=== PATIENT | male | born 1935 | race Caucasian/White ===

== ENCOUNTER 2017-01-20 05:13 | Emergency (ER) | payer OTHER ==
[~2017-01-20] VITALS: Ht 172.7 cm; Wt 86.4 kg
[~2017-01-20 05:13] MED LIST: ASPI325T PO; GLIM1TAB PO; GLUCTAB PO; LANTINJ SC; NIAC100T3 PO; NOVOLOGP2 SC; PRIN20TA2 PO; ROSU40 OR
[2017-01-20 05:23] VITALS: BP 162/71; PULSE 64; RESP 18; TEMP 98.1; O2SAT 97
[2017-01-20] MEDS ORDERED: METF500T PO (05:37)
[2017-01-20] MEDS ORDERED: LISI-515 PO (05:42)
--- NOTE | 2017-01-20 05:49 | PD ---
HPI Chief Complaint: Skin Problem Time Seen by Provider: 05:42 Travel History International Travel<30 days: No Contact w/Intl Traveler<30days: No Traveled to known affect area: No History of Present Illness HPI 41-year-old male presents to the emergency department for complaint of redness and swelling and pain to the right wrist. Patient has noted this discomfort over the past 2 days. Tetanus status is current. Patient states that a few days ago he was playing with a cat and may have sustained a scratch or a superficial puncture wound or bite. Patient is not sure. Patient states that there was a small area of bleeding. Patient denies any ascending erythema and has not experienced any axillary lymphadenopathy. No reported fever or chills. Patient is diabetic. Blood sugars have been adequately controlled. No recent change in medication. No fall or injury otherwise noted. Area of soft tissue swelling is confined to the wrist and spares the hands and digits as well as spares the forearm. PFSH Past Medical History Narrative Medical CAD hypertension dyslipidemia diabetes cardiac catheterization with stents 3 tobacco use prostate cancer; nursing notes reviewed Heart Rhythm Problems: Yes (TODAY, ELEVATED HEART RATE) Cancer: Yes (PROSTATE) Cardiac Catheterization: Yes Cardiovascular Problems: Yes (STENTS X3) High Cholesterol: Yes Congestive Heart Failure: No Coronary Artery Disease: Yes Diabetes: Yes Diminished Hearing: No Glaucoma: No Hepatitis: No Hiatal Hernia: No Hypertension: Yes Thyroid Disease: No Past Surgical History Cardiac Surgery: Yes (CARDIAC STENTS) Coronary Artery Bypass Graft: No Eye Surgery: Yes (CATARACT ON RIGHT ) Genitourinary Surgery: Yes (PROSTATE REMOVED 2004) Oral Surgery: Yes (TONSILLECTOMY CHILD) Pacemaker: No Other Surgery: Yes Social History Alcohol Use: Yes (SOCIAL) Tobacco Use: Yes (ONCE A MONTH) Substance Use: No Allergies-Medications (Allergen,Severity, Reaction): Coded Allergies: Sulfa (Verified Allergy, Severe, 01/20/17) Sulfites & Bisulfites (Unverified Allergy, Severe, 01/20/17) Reported Meds & Prescriptions Reported Meds & Active Scripts Active Tramadol (Tramadol HCl) 50 Mg Tab 50 Mg PO Q6H PRN Augmentin (Amoxicillin-Clavulanate) 875-125 Mg Tab 1 Tab PO BID 10 Days Reported Lisinopril 20 Mg Tab 20 Mg PO DAILY Metformin (Metformin HCl) 500 Mg Tab 500 Mg PO With a meal Review of Systems Except as stated in HPI: all other systems reviewed are Neg Physical Exam Narrative GENERAL: Well-developed well-nourished male in no acute distress no respiratory distress SKIN: Warm and dry. HEAD: Normocephalic. EYES: No scleral icterus. No injection or drainage. NECK: Supple, trachea midline. No JVD or lymphadenopathy. CARDIOVASCULAR: Regular rate and rhythm with 1/6 murmurs, no gallops or rubs. RESPIRATORY: Breath sounds equal bilaterally. No accessory muscle use. GASTROINTESTINAL: Abdomen soft, non-tender, nondistended. MUSCULOSKELETAL: No cyanosis, or edema. Attention right upper extremity with erythema warmth and tenderness to palpation of the radial aspect of the distal forearm and wrist with intact range of motion however does precipitate discomfort distally extremity is neurovascular tendon intact with intact suction extension and thumb apposition of each digit capillary refill brisk and less than 2 seconds per digit radial pulses are 2+ to palpation there is no ascending erythema or axillary lymphadenopathy no visible abrasion or puncture wound noted. BACK: Nontender without obvious deformity. No CVA tenderness. Data Data Last Documented VS Vital Signs Date Time Temp Pulse Resp B/P Pulse Ox O2 Delivery O2 Flow Rate FiO2 01/20/17 07:26 71 16 153/81 96 Room Air 01/20/17 05:23 98.1 Orders Complete Blood Count With Diff (01/20/17 05:42) Basic Metabolic Panel (Bmp) (01/20/17 05:42) Electrocardiogram (01/20/17 ) Wrist, Complete ([id number]) (01/20/17 ) Blood Glucose (01/20/17 05:49) Magnesium (Mg) (01/20/17 06:50) Troponin I (01/20/17 06:50) Ckmb (Isoenzyme) Profile (01/20/17 06:50) Amoxicil-Clavulanate (Augmentin) (01/20/17 07:30) Labs Laboratory Tests Test 01/20/17 06:30 White Blood Count 8.9 TH/MM3 Red Blood Count 4.25 MIL/MM3 Hemoglobin 13.4 GM/DL Hematocrit 38.8 % Mean Corpuscular Volume 91.4 FL Mean Corpuscular Hemoglobin 31.6 PG Mean Corpuscular Hemoglobin 34.6 % Concent Red Cell Distribution Width 12.6 % Platelet Count 116 TH/MM3 Mean Platelet Volume 10.4 FL Neutrophils (%) (Auto) 71.6 % Lymphocytes (%) (Auto) 13.8 % Monocytes (%) (Auto) 6.6 % Eosinophils (%) (Auto) 7.2 % Basophils (%) (Auto) 0.8 % Neutrophils # (Auto) 6.4 TH/MM3 Lymphocytes # (Auto) 1.2 TH/MM3 Monocytes # (Auto) 0.6 TH/MM3 Eosinophils # (Auto) 0.6 TH/MM3 Basophils # (Auto) 0.1 TH/MM3 CBC Comment DIFF FINAL Differential Comment Sodium Level 143 MEQ/L Potassium Level 3.7 MEQ/L Chloride Level 108 MEQ/L Carbon Dioxide Level 29.2 MEQ/L Anion Gap 6 MEQ/L Blood Urea Nitrogen 17 MG/DL Creatinine 1.10 MG/DL Estimat Glomerular Filtration 65 ML/MIN Rate Random Glucose 104 MG/DL Calcium Level 9.0 MG/DL MDM Medical Decision Making Medical Screen Exam Complete: Yes Emergency Medical Condition: Yes Medical Record Reviewed: Yes Interpretation(s) EKG: Normal sinus rhythm rate [address] elevation or injury pattern change noted however patient is noted to be and secondary heart block Mobitz type I CBC & BMP Diagram 01/20/17 06:30 Last Impressions Wrist X-Ray 01/20/17 0000 Signed Impressions: Service Date/Time: Friday, January 20, 2017 06:03 - CONCLUSION: Nondisplaced distal navicular fracture. Jorge Christina MD Differential Diagnosis Cellulitis, animal bite, gouty arthritis, retained foreign body; unlikely septic arthritis Narrative Course IV access obtained specimens collected and sent for resulting imaging studies ordered EKG performed patient noted irregular heart rate --ekg performed imaging no FB; concern for navicular fracture; on re-exam no tenderness over the anatomical snuffbox; thumb spika splint placed patient given augmentin 875 for focal cellulitis Physician Communication Physician Communication call placed to hand --Dr Khanna Diagnosis Primary Impression: Cellulitis of right arm Additional Impressions: Cat scratch Bradycardia Fracture of navicular bone of right wrist Qualified Code: S62.011A - Closed displaced fracture of distal pole of scaphoid bone of right wrist, initial encounter Referrals: Lito Mcknight MD PhD call for appointment Hand Surgeon call for appointment Patient Instructions: General Instructions Additional Instructions: follow up with your PCP follow up with hand surgeon complete antibiotic take pain medication as need per prescription; use with caution as may increase risk for fall, impaired judgment, delay reaction time, cause constipation, and do not take this medication with alcohol or while driving vehicle wear splint return to the ED for any concerns Med/Other Pt SpecificInfo: Prescription(s) given Scripts Tramadol 50 Mg Tab50 Mg PO Q6H PRN (PAIN) #12 TAB Ref 0 Prov:Claudia Nick MD 01/20/17 Amoxicillin-Clavulanate (Augmentin)875-125 Mg Tab1 Tab PO BID 10 Days Ref 0 Prov:Claudia Nick MD 01/20/17 Claudia Nick MD Jan 20, 2017 05:49
[2017-01-20 06:47] LABS: POTASSIUM 3.7 MEQ/L (3.5-5.1)
[2017-01-20 06:49] LABS: BICARBONATE 29.2 MEQ/L (21.0-32.0)
--- NOTE | 2017-01-20 06:49 | RADRPT ---
EXAM DATE/TIME: 01/20/2017 06:03 [facility] COMPARISON: No previous studies available for comparison. INDICATIONS : Right wrist pain and swelling after cat bite. MEDICAL HISTORY : None. SURGICAL HISTORY : None. ENCOUNTER: Initial ACUITY: 1 day PAIN SCORE: 8/10 LOCATION: Right wrist FINDINGS: Three-view examination of the right wrist demonstrates a transverse lucency through the distal one th ird of the scaphoid suggesting a nondisplaced fracture. This is seen on 2-3 views. There is a small 2 mm rounded calcification adjacent to the distal scaphoid with a similar size lucency seen within t he scaphoid suggesting a displaced fragment. The scapholunate distance is normal. Distal radius is intact. There is a cystic area in the distal ulna with thin rim calcification measuring 9 mm. This is a nonaggressive appearance. No radiopaque foreign bodies. CONCLUSION: Nondisplaced distal navicular fracture. Jorge Christina MD on January 20, 2017 at 6:45 Board Certified Radiologist. This report was verified electronically.
[2017-01-20 06:52] LABS: AUTOMATED NEUTROPHIL # 6.4 TH/MM3 (1.8-7.7); BASOPHIL # 0.1 TH/MM3 (0-0.2); BASOPHIL % 0.8 % (0.0-2.0); EOSINOPHIL # 0.6 TH/MM3 (0-0.4); EOSINOPHIL % 7.2 % (0.0-4.0); HEMATOCRIT 38.8 % (39.0-51.0); HEMO FLAGS DIFF FINAL; LYMPH % 13.8 % (9.0-44.0); LYMPHOCYTE # 1.2 TH/MM3 (1.0-4.8); MEAN CELL VOLUME 91.4 FL (80.0-100.0); MEAN CORPUSCULAR HEMOGLOBIN 31.6 PG (27.0-34.0); MEAN CORPUSCULAR HGB CONC 34.6 % (32.0-36.0); MONO % 6.6 % (0.0-8.0); NEUT % 71.6 % (16.0-70.0); PLATELET COUNT 116 TH/MM3 (150-450); RED BLOOD COUNT 4.25 MIL/MM3 (4.50-5.90); RED CELL DISTRIBUTION WIDTH 12.6 % (11.6-17.2); WHITE BLOOD COUNT 8.9 TH/MM3 (4.0-11.0)
[2017-01-20] MEDS ORDERED: AUGM875T3 PO (07:21)
[2017-01-20 07:26] VITALS: BP 153/81; PULSE 71; RESP 16; O2SAT 96
[2017-01-20] MEDS ORDERED: AMOXICILLIN/CLAVULANATE K 875 MG TAB PO ONE (07:30)
[2017-01-20] MEDS ORDERED: TRAM50TA PO (07:30)
[2017-01-20 07:41] LABS: MAGNESIUM 1.8 MG/DL (1.5-2.5)
[2017-01-20 07:59] LABS: CREATINE KINASE 61 U/L (39-308)
--- NOTE | 2017-01-20 23:02 | EKG ---
Date Performed: 01/20/2017 Time Performed: 06:09:37 PTAGE: 81 years EKG: Sinus rhythm PACs ABNORMAL ECG PREVIOUS TRACING : 03/29/2013 15.58 Compared to the previous tracing PACs present DOCTOR: Sergio Marques Interpretating Date/Time 01/20/2017 23:01:10
== END 2017-01-20 08:18 | disposition home or self-care (01) ==
LOC: PHED 05:13
DX: S62.011A Displaced fracture of distal pole of navicular [scaphoid] bone of right wrist, initial encounter for closed fracture (principal); L03.113 Cellulitis of right upper limb; R00.1 Bradycardia, unspecified; E11.9 Type 2 diabetes mellitus without complications; I25.10 Atherosclerotic heart disease of native coronary artery without angina pectoris; E78.00 Pure hypercholesterolemia, unspecified; I10 Essential (primary) hypertension; Z85.46 Personal history of malignant neoplasm of prostate; Z95.5 Presence of coronary angioplasty implant and graft; W55.01XA Bitten by cat, initial encounter
CPT/HCPCS: 29130; 73110; 80048; 82550; 83735; 84484; 85025; 93005; 99285; L3808